=== PATIENT | male | born 1990 | race Caucasian/White ===

== ENCOUNTER 2018-07-16 14:13 | Emergency (ER) | payer SELFPAY ==
[~2018-07-16] VITALS: Ht 180.3 cm; Wt 68.9 kg
[2018-07-16 15:00] VITALS: BP 136/73
[2018-07-16] MEDS ORDERED: TETRACAINE 0.5% OPHTH SOLUTION 4ML BOTTLE. OD ONE (15:15)
[2018-07-16] MEDS ORDERED: PROPARACAINE/FLUORESCEIN 0.5 ML OPHTH DROPS. OD ONE (15:30)
[2018-07-16] MEDS ORDERED: OFLO5DRO OP (15:43)
--- NOTE | 2018-07-16 15:44 | PHYS DOC ---
Past Medical History Past Medical History: No Pertinent History Past Surgical History: No Surgical History Alcohol Use: Heavy Drug Use: Marijuana Adult General Chief Complaint Chief Complaint: FOREIGN BODY/EYES HPI HPI Patient is a 27 year old male who presents with irritation to the right eye. The patient states that he was using a plasma cutting torch and felt like something had flown into his eye. He states that is been irritated since then. He denies changes in visual acuity. He states that his eye is been very watery. He has been rubbing at the eye and states that he now has some redness to the eye. Review of Systems Review of Systems Constitutional: Denies fever or chills [] Eyes: See history of present illness HENT: Denies nasal congestion or sore throat [] Respiratory: Denies cough or shortness of breath [] Cardiovascular: No additional information not addressed in HPI [] Neurologic: Denies headache, focal weakness or sensory changes [] Endocrine: Denies polyuria or polydipsia [] All other systems were reviewed and found to be within normal limits, except as documented in this note. Current Medications Current Medications Current Medications Medications (Trade) Dose Ordered Sig/Sadia Start Time Stop Time Status Last Admin Dose Admin Proparacaine HCl/ Fluorescein Sodium (Flucaine Eye Drops) 1 drop 1X ONCE 07/16/18 15:30 07/16/18 15:31 DC 07/16/18 15:40 1 DROP Tetracaine HCl (Tetracaine) 1 drop 1X ONCE 07/16/18 15:15 07/16/18 15:16 DC 07/16/18 15:40 1 DROP Allergies Allergies Allergies Coded Allergies Type Severity Reaction Last Updated Verified No Known Drug Allergies 12/19/14 No Physical Exam Physical Exam Constitutional: Well developed, well nourished, no acute distress, non-toxic appearance. [] HENT: Normocephalic, atraumatic, bilateral external ears normal, oropharynx moist, no oral exudates, nose normal. [] Eyes: PERRLA, EOMI, conjunctiva erythematous with watery discharge. [] Neck: Normal range of motion, no tenderness, supple, no stridor. [] Cardiovascular:Heart rate regular rhythm, no murmur [] Lungs & Thorax: Bilateral breath sounds clear to auscultation [] Neurologic: Alert and oriented X 3, normal motor function, normal sensory function, no focal deficits noted. [] Psychologic: Affect normal, judgement normal, mood normal. [] Current Patient Data Vital Signs Vital Signs Date Time Temp Pulse Resp B/P (MAP) Pulse Ox O2 Delivery O2 Flow Rate FiO2 07/16/18 15:00 98.1 60 18 136/73 (94) 98 Room Air 98.1 EKG EKG [] Radiology/Procedures Radiology/Procedures []Visual acuity was normal. See nurse's note for details. Following administration of tetracaine and floor seen stained the patient's eye was examined under Wood lamp. There is dye uptake to the sclera with erythema noted, no sign of a foreign body noted. The patient will be placed on antibiotic therapy. He is to follow-up with ophthalmology. He is in agreement with this plan. Course & Med Decision Making Course & Med Decision Making Pertinent Labs and Imaging studies reviewed. (See chart for details) [] Dragon Disclaimer Dragon Disclaimer This electronic medical record was generated, in whole or in part, using a voice recognition dictation system. Departure Departure Impression: Primary Impression: Eye abrasion Disposition: 01 HOME, SELF-CARE Condition: STABLE Referrals: NO PCP (PCP) ABILIO LAWSON MD Patient Instructions: Eye - Scleritis and Episcleritis Additional Instructions: Use the drops as directed. If worsening, see ophthalmology immediately or return to the emergency department. Scripts Tramadol Hcl (TRAMADOL HCL) 50 Mg Tablet 50 MG PO Q6HRS PRN for PAIN, #14 TAB Prov: KILLIAN RODRIGUEZ APRN 07/16/18 Ofloxacin (OCUFLOX) 5 Ml Drops 5 ML OP QID for abrasion, #1 BOTTLE Prov: KILLIAN RODRIGUEZ APRN 07/16/18 KILLIAN RODRIGUEZ APRN Jul 16, 2018 15:44
[2018-07-16] MEDS ORDERED: TRAM50TA PO (15:55)
== END 2018-07-16 15:58 | disposition home or self-care (01) ==
LOC: ER 14:13
DX: S05.01XA Injury of conjunctiva and corneal abrasion without foreign body, right eye, initial encounter (principal); F10.20 Alcohol dependence, uncomplicated; Y90.9 Presence of alcohol in blood, level not specified; X58.XXXA Exposure to other specified factors, initial encounter; Y93.89 Activity, other specified; Y92.89 Other specified places as the place of occurrence of the external cause; Y99.8 Other external cause status
CPT/HCPCS: 99283